=== PATIENT | male | born 1965 | race Caucasian/White ===

== ENCOUNTER 2024-08-23 12:32 | Emergency (ER) | payer OTHER, BC ==
[2024-08-23] MEDS: Cyclobenzaprine 10 MG Tab PO STA (13:28)
[2024-08-23] MEDS: HYDROmorphone 1 MG/ML Syringe IM ONE ×3 (13:29→15:56)
[2024-08-23] MEDS: Lidocaine 4% Patch TOP STA (13:29)
== END 2024-08-23 16:41 | disposition home or self-care (01) ==
LOC: MW.ED 12:32
DX: S22.070A Wedge compression fracture of T9-T10 vertebra, initial encounter for closed fracture (principal); Z75.3 Unavailability and inaccessibility of health-care facilities; X50.1XXA Overexertion from prolonged static or awkward postures, initial encounter; Y93.44 Activity, trampolining
CPT/HCPCS: 72128; 72131; 96372; 99283; A9270; J1171